=== PATIENT | female | born 1990 | race Two or more races ===

== ENCOUNTER 2018-03-10 00:04 | Emergency (ER) | payer MEDICAID ==
[~2018-03-10] VITALS: Ht 172.7 cm; Wt 101.0 kg
[2018-03-10] MEDS ORDERED: IBUPROFEN 200 MG TABLET PO ONE (00:30)
[2018-03-10] MEDS ORDERED: ACETAMINOPHEN 500 MG TABLET PO ONE (00:30)
[2018-03-10] MEDS ORDERED: IBUPROFEN 200 MG TABLET ONE (00:33)
[2018-03-10] MEDS ORDERED: ACETAMINOPHEN 500 MG TABLET ONE (00:33)
[2018-03-10] MEDS ORDERED: PLEASE ENTER ALLERGIES MC SCH (01:00)
[2018-03-10 01:02] VITALS: BP 131/89
== END 2018-03-10 01:06 | disposition home or self-care (01) ==
LOC: ED 01:00
DX: S02.2XXA Fracture of nasal bones, initial encounter for closed fracture (principal); S00.83XA Contusion of other part of head, initial encounter; Y04.8XXA Assault by other bodily force, initial encounter; Y93.89 Activity, other specified; Y99.8 Other external cause status; Y92.009 Unspecified place in unspecified non-institutional (private) residence as the place of occurrence of the external cause
CPT/HCPCS: 70150; 99284

== ENCOUNTER 2019-02-14 13:00 | Emergency (ER) | payer MEDICAID ==
[~2019-02-14] VITALS: Ht 170.2 cm; Wt 153.0 kg
[2019-02-14 14:36] LABS: BASOPHILS # (AUTO) 0.05 x10^3/uL (0-0.1); BASOPHILS % (AUTO) 0 % (0-1); EOSINOPHILS # (AUTO) 0.07 x10^3/uL (0-0.4); EOSINOPHILS % (AUTO) 1 % (1-7); LYMPHOCYTES # (AUTO) 2.11 x10^3/uL (1-3.4); LYMPHOCYTES % (AUTO) 20 % (22-44); MD NO; MEAN CORPUSCULAR HGB CONC 32.7 g/dL (32.4-35.8); MEAN CORPUSCULAR VOLUME 91.8 fL (80-100); MEAN PLATELET VOLUME 10.3 fL (7.4-10.4); MONOCYTES # (AUTO) 0.43 x10^3/uL (0.2-0.8); MONOCYTES % (AUTO) 4 % (2-9); NEUTROPHILS # (AUTO) 7.87 x10^3/uL (1.8-6.8); NEUTROPHILS % (AUTO) 75 % (42-75); PLATELET COUNT 133 x10^3/uL (130-400); RED BLOOD COUNT 4.95 x10^6/uL (3.82-5.3); RED CELL DISTRIBUTION WIDTH 14.6 % (9.6-15.2)
[2019-02-14 14:47] LABS: ALANINE AMINOTRANSFERASE 23 U/L (12-78); ALBUMIN 3.7 g/dL (3.4-5.0); ANION GAP 4 mmol/L (5-15); CALCIUM 8.9 mg/dL (8.5-10.1); CHLORIDE 115 mmol/L (98-107)
[2019-02-14 14:51] LABS: ALKALINE PHOSPHATASE 70 U/L (45-117); BILIRUBIN,TOTAL 0.3 mg/dL (0.2-1.0); TOTAL PROTEIN 6.5 g/dL (6.4-8.2)
--- NOTE | 2019-02-14 15:09 | NUR ---
NIL 1445 NIL 1510 Radiology called to confirm that pt is not in dept.
--- NOTE | 2019-02-14 15:35 | NUR ---
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
--- NOTE | 2019-02-14 16:01 | NUR ---
PT C/O ABD PAIN BEGINNING YETERDAY AFTERNOON, PT HAS SOME C/O NAUSEA WITH THE PAIN. CURRENTLY HAS 10/10 ABD PAIN. ERMD IN TO EVAL PT. VSS. NO C/O DIZZINESS, CP, TRAUMA. UA ORDERED, WILL COLLECT
[2019-02-14 16:06] VITALS: BP 138/79
[2019-02-14 16:27] LABS: CULTURE INDICATED? YES; MICROSCOPIC INDICATED
--- NOTE | 2019-02-14 16:55 | NUR ---
PT WITH DISCHARGE ORDERS, INSTRUCTIONS GIVEN AND UNDERSTANDING STATED. PT ESCORTED WITH ALL BELONGINGS IN PLACE TO CHECK OUT.
== END 2019-02-14 16:57 | disposition home or self-care (01) ==
LOC: ED 16:26
DX: R10.2 Pelvic and perineal pain (principal)
CPT/HCPCS: 36415; 76830; 80053; 81001; 84703; 85025; 87086; 99284

== ENCOUNTER 2019-05-17 02:00 | Emergency (ER) | payer MEDICAID ==
[~2019-05-17] VITALS: Ht 172.7 cm; Wt 163.0 kg
[2019-05-17] MEDS ORDERED: IBUP-1223 PO (02:33)
[2019-05-17] MEDS ORDERED: MORPHINE SULFATE 4 MG/ML, 1ML ONE (02:52)
[2019-05-17 02:53] LABS: BASOPHILS # (AUTO) 0.06 x10^3/uL (0-0.1); BASOPHILS % (AUTO) 1 % (0-1); EOSINOPHILS # (AUTO) 0.32 x10^3/uL (0-0.4); EOSINOPHILS % (AUTO) 3 % (1-7); LYMPHOCYTES # (AUTO) 3.82 x10^3/uL (1-3.4); LYMPHOCYTES % (AUTO) 33 % (22-44); MD NO; MEAN CORPUSCULAR HEMOGLOBIN 30.6 pg (27.0-34.8); MEAN CORPUSCULAR HGB CONC 33.3 g/dL (32.4-35.8); MEAN CORPUSCULAR VOLUME 92.1 fL (80-100); MEAN PLATELET VOLUME 9.6 fL (7.4-10.4); MONOCYTES # (AUTO) 0.59 x10^3/uL (0.2-0.8); MONOCYTES % (AUTO) 5 % (2-9); NEUTROPHILS # (AUTO) 6.96 x10^3/uL (1.8-6.8); NEUTROPHILS % (AUTO) 59 % (42-75); PLATELET COUNT 155 x10^3/uL (130-400); RED BLOOD COUNT 4.37 x10^6/uL (3.82-5.3); RED CELL DISTRIBUTION WIDTH 15.1 % (9.6-15.2)
[2019-05-17] MEDS ORDERED: SODIUM CHLORIDE 0.9% 1,000ML IVBOLUS ONE (03:00)
[2019-05-17] MEDS ORDERED: SODIUM CHLORIDE FLUSH 10ML SYR IVF ONE (03:00)
[2019-05-17] MEDS ORDERED: MORPHINE SULFATE 4 MG/ML, 1ML IVPush ONE (03:00)
[2019-05-17] MEDS ORDERED: morphine SULFATE 10 MG/ML, 1ML IVPush ONE (03:00)
[2019-05-17 03:07] LABS: ALBUMIN 3.6 g/dL (3.4-5.0); ANION GAP 4 mmol/L (5-15); CALCIUM 8.7 mg/dL (8.5-10.1); CHLORIDE 110 mmol/L (98-107)
--- NOTE | 2019-05-17 03:26 | NUR ---
REPORT RECIEVED FROM MANI NG. PT TO US AT THIS TIME.
--- NOTE | 2019-05-17 05:00 | NUR ---
PT UPDATED ON POC. NADN. VSS. PT SLEEPING WHEN ENTERED THE ROOM, EASILY AROUSED TO VERBAL STIMULI. A&OX4.
--- NOTE | 2019-05-17 05:32 | NUR ---
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
[2019-05-17 05:42] VITALS: BP 104/68
== END 2019-05-17 06:06 | disposition home or self-care (01) ==
LOC: ED 05:05
DX: N99.821 Postprocedural hemorrhage of a genitourinary system organ or structure following other procedure (principal); N93.9 Abnormal uterine and vaginal bleeding, unspecified; Z90.710 Acquired absence of both cervix and uterus
CPT/HCPCS: 36415; 76830; 80048; 82040; 84703; 85025; 96374; 96376; 99284; J2270; J7030

== ENCOUNTER 2020-09-12 11:27 | Emergency (ER) | payer MEDICAID ==
[~2020-09-12] VITALS: Ht 172.7 cm; Wt 112.9 kg
[~2020-09-12 11:27] MED LIST: IBUP-1223 PO
[2020-09-12 11:28] VITALS: BP 165/94
--- NOTE | 2020-09-12 11:39 | NUR ---
PT HAS C/O SORE THROAT THAT STARETD YESTERDAY. PT RESTING IN ER BED, WITH PT VSS. PT HAS NO CURENT WANTS OR NEEDS AT THIS TIME.
[2020-09-12] MEDS ORDERED: DEXAMETHASONE 4 MG TABLET PO ONE (12:30)
[2020-09-12] MEDS ORDERED: HYDROcodone/APAP 7.5-325MG/15ML UDC PO ONE (12:30)
[2020-09-12] MEDS ORDERED: HYDROcodone/APAP 7.5-325MG/15ML UDC ONE (12:31)
[2020-09-12] MEDS ORDERED: DEXAMETHASONE 4 MG TABLET ONE (12:31)
== END 2020-09-12 13:09 | disposition home or self-care (01) ==
LOC: ED 12:08
DX: J02.0 Streptococcal pharyngitis (principal); R05 Cough; Z20.822 Contact with and (suspected) exposure to COVID-19
CPT/HCPCS: 87635; 87880; 99283

== ENCOUNTER 2021-05-17 23:30 | Emergency (ER) | payer MEDICAID ==
[~2021-05-17] VITALS: Ht 172.7 cm; Wt 103.7 kg
--- NOTE | 2021-05-18 03:00 | NUR ---
NA X1
--- NOTE | 2021-05-18 03:29 | NUR ---
PT CALLED FOR ROOM. NA X 2
--- NOTE | 2021-05-18 04:01 | NUR ---
PT AMBULATED TO ROOM. AND MD TO BEDSIDE TO EVAL. PT SWABBED FOR COVID AND WALKED SAMPLE TO LAB. PT TOLERATED WELL. PT NEEDS A CXRY.
[2021-05-18] MEDS ORDERED: ACETAMINOPHEN 500 MG TABLET ONE (04:09)
[2021-05-18] MEDS ORDERED: IBUPROFEN 600 MG TABLET ONE (04:09)
[2021-05-18] MEDS ORDERED: IBUPROFEN 600 MG TABLET PO ONE (04:30)
[2021-05-18] MEDS ORDERED: ACETAMINOPHEN 500 MG TABLET PO ONE (04:30)
[2021-05-18 05:52] VITALS: BP 156/88
--- NOTE | 2021-05-18 05:55 | NUR ---
F/U AND D/C INSTRUCTIONS GIVEN TO PT AND SHE V/U. PT AMBULATED TO DISCHARGE DESK.
== END 2021-05-18 05:56 | disposition home or self-care (01) ==
LOC: ED 05-18 05:46
DX: B34.9 Viral infection, unspecified (principal); Z20.822 Contact with and (suspected) exposure to COVID-19; F17.200 Nicotine dependence, unspecified, uncomplicated
CPT/HCPCS: 71045; 99284; U0003; U0005